=== PATIENT | female | born 1985 | race Caucasian/White ===

== ENCOUNTER 2016-07-18 08:12 | Inpatient (IN) | payer OTHER ==
[~2016-07-18 08:12] MED LIST: CALCIUM600 MG PO; MOTRIN800 MG PO; PRENA1 CHEW TA1.4 M1 PO; PRENATAL1 EACH PO; PRILOSEC20 MG PO; PROTONIX40 M2 PO; TYLENOL COLD H1 EAC1 PO; TYLENOL PO
[2016-07-18 12:07] LABS: BASO % 0.4 % (0-2); EOS % 0.6 % (0-7); EOSINOPHIL ABSOLUTE COUNT 0.1 tho/cmm (0.0-0.7); HCT-HEMATOCRIT 35.4 % (34.0-49.0); HGB-HEMOGLOBIN 11.7 gm/dl (12.0-15.5); IMMATURE GRANULOCYTES ABSOLUTE 0.02 tho/cmm (0-0.03); IMMATURE GRANULOCYTES PERCENT 0.2 % (0-0.3); LYMPH % 20.4 % (20-45); LYMPH ABSOLUTE COUNT 1.7 tho/cmm (0.8-4.5); MCH (MEAN CORPUSCULAR HGB) 30.2 pg (28.0-32.0); MCHC MEAN CORPUSCULAR HGB CONC 33.1 % (32.0-36.0); MCV (MEAN CELL VOLUME) 91.5 fl (82.0-96.0); MEAN PLATELET VOLUME 9.3 cmc (9.4-12.4); MONOCYTE ABSOLUTE COUNT 0.8 tho/cmm (0.0-1.2); NEUTROPHIL ABSOLUTE COUNT 5.7 tho/cmm (1.6-8.0); NEUTROPHIL-AUTOMATED 5.7 tho/cmm (1.6-8.0); NEUTROPHILS % 68.4 % (40-80); PLATELET COUNT 192 tho/cmm (150-450); RED BLOOD COUNT 3.87 mil/cmm (4.00-5.20); RED CELL DISTRIBUTION WIDTH 14.6 % (12.4-16.4); WHITE BLOOD COUNT 8.3 tho/cmm (4.0-10.0)
[2016-07-18 17:54] LABS: CORD BLOOD PH ARTERIAL 7.25 Units (7.18-7.38)
[2016-07-19 07:39] LABS: BASO % 0.3 % (0-2); EOS % 0.7 % (0-7); EOSINOPHIL ABSOLUTE COUNT 0.1 tho/cmm (0.0-0.7); HGB-HEMOGLOBIN 11.2 gm/dl (12.0-15.5); IMMATURE GRANULOCYTES ABSOLUTE 0.04 tho/cmm (0-0.03); IMMATURE GRANULOCYTES PERCENT 0.4 % (0-0.3); LYMPH % 16.8 % (20-45); LYMPH ABSOLUTE COUNT 1.8 tho/cmm (0.8-4.5); MCH (MEAN CORPUSCULAR HGB) 30.5 pg (28.0-32.0); MCHC MEAN CORPUSCULAR HGB CONC 32.9 % (32.0-36.0); MCV (MEAN CELL VOLUME) 92.6 fl (82.0-96.0); MEAN PLATELET VOLUME 9.4 cmc (9.4-12.4); MONO % 11.9 % (0-12); MONOCYTE ABSOLUTE COUNT 1.3 tho/cmm (0.0-1.2); NEUTROPHIL ABSOLUTE COUNT 7.4 tho/cmm (1.6-8.0); NEUTROPHIL-AUTOMATED 7.4 tho/cmm (1.6-8.0); NEUTROPHILS % 69.9 % (40-80); PLATELET COUNT 177 tho/cmm (150-450); RED BLOOD COUNT 3.67 mil/cmm (4.00-5.20); RED CELL DISTRIBUTION WIDTH 14.7 % (12.4-16.4); WHITE BLOOD COUNT 10.6 tho/cmm (4.0-10.0)
[2016-07-20] MEDS ORDERED: IBUPROFEN800 M1 PO ×2 (10:09→10:11)
== END 2016-07-20 12:15 | DRG 775 ==
LOC: LDR 08:12 → OBGD 21:24
PROVIDERS: Anesthesiology; ADMIT Obstetrics & Gynecology
PROC: 10907ZC Drainage of Amniotic Fluid, Therapeutic from Products of Conception, Via Natural or Artificial Opening (ICD-10-PCS; principal; 2016-07-18)
PROC: 10E0XZZ Delivery of Products of Conception, External Approach (ICD-10-PCS; 2016-07-18)
PROC: 0HQ9XZZ Repair Perineum Skin, External Approach (ICD-10-PCS; 2016-07-18)
DX: O77.0 Labor and delivery complicated by meconium in amniotic fluid (principal); O48.0 Post-term pregnancy; Z37.0 Single live birth; Z3A.40 40 weeks gestation of pregnancy; O70.0 First degree perineal laceration during delivery
CPT/HCPCS: J2405; J2590